=== PATIENT | female | born 1960 | race Caucasian/White ===

== ENCOUNTER 2020-04-26 23:10 | Emergency (ER) | payer OTHER, SELFPAY ==
[2020-04-26 23:15] VITALS: BP 189/98; PULSE 124; RESP 16; TEMP 37.3; O2SAT 98; BMI 37.8
[2020-04-26 23:30] VITALS: BP 151/78; PULSE 116; RESP 19; O2SAT 96
--- NOTE | 2020-04-26 23:42 | ED_ITS ---
HPI - Abdominal Pain General Chief Complaint: Abdominal Pain Stated Complaint: twisted bowel Time Seen by Provider: 04/26/20 23:12 Source: patient Mode of arrival: Ambulatory Limitations: no limitations History of Present Illness HPI narrative: 59-year-old female former smoker without significant medical history presents with a chief complaint of episodes of right upper quadrant pain with radiation to her back that lasts seconds to minutes and have no apparent provocation or palliation. Her symptoms started about 2 weeks ago and have been increasing in frequency and severity since. Today she started having some numbness on the surface of her skin overlying her right upper quadrant. She denies any change with position, eating. She has been having normal bowel movements and denies any nausea or vomiting. She denies any history of the same. She is concerned she may have a bowel obstruction because her mother had 1 and she remembers it acting somewhat like this. She states at its most intense her pain was 7/10 but is currently not present at all. She states she is always tachycardic with resting heart rates in the 110s to 120s. 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 MD complaint: abdominal pain Onset (ago): week(s) Pain Consistency: intermittent Location: RUQ Severity: severe Quality: cramping and stabbing Radiation: R flank and back Migration to: no migration Relieving factors: nothing Exacerbating factors: nothing Associated symptoms: denies other symptoms Related Data Previous Rx's Medication Instructions Recorded hydrocodone-acetaminophen 1 tab PO Q4-6H PRN #10 tab 04/27/20 ondansetron 4 mg PO TID-QID PRN #10 tab 04/27/20 Allergies Allergy/AdvReac Type Severity Reaction Status Date / Time ibuprofen [IBUPROFEN] Allergy Unknown Verified 04/27/20 00:27 iodine [IODINE] Allergy Unknown Verified 04/27/20 00:27 penicillin G [PENICILLIN G] Allergy Unknown Verified 04/27/20 00:27 Review of Systems Constitutional Constitutional: Denies chills, Denies fatigue, Denies fever(s), Denies frequent falls, Denies lethargy and Denies weakness Eyes Eyes: Denies change in vision, Denies eye discharge, Denies irritation and Denies loss of vision ENT Ears, Nose, Mouth, and Throat: Denies change in voice, Denies dizziness, Denies neck pain, Denies sore throat and Denies throat swelling Cardiovascular Cardiovascular: Denies chest pain, Denies irregular heart rhythm, Denies lightheadedness, Denies palpitations, Denies dyspnea, Denies dyspnea on exertion and Denies orthopnea Respiratory Respiratory: Denies cough, Denies dyspnea, Denies dyspnea on exertion and Denies wheezing Gastrointestinal Gastrointestinal: Reports abdominal pain, Denies change in bowel habits, Denies diarrhea, Denies nausea and Denies vomiting Musculoskeletal Musculoskeletal: Denies neck pain and Denies numbness Integumentary/Breasts Skin/Breast: Denies pruritus, Denies erythema, Denies rash and Denies wounds Neurologic Neurologic: Denies behavioral changes, Denies confusion, Denies dizziness, Denies frequent falls, Denies loss of vision, Denies numbness and Denies weakness Psychiatric Psychiatric: Denies anxiety, Denies behavioral changes, Denies confusion, Denies depression, Denies homicidal ideation and Denies suicidal ideation Endocrine Endocrine: Denies fatigue, Denies flushing and Denies palpitations Hematologic/Lymphatic Hematologic/Lymphatic: Denies easy bruising Allergic/Immunologic Allergic/Immunologic: Denies urticaria, Denies throat swelling and Denies wheez ing Patient History Social History Smoking Status: Never smoker Smoking Status: Never smoker Substance Use Type: does not use Exam Narrative Exam Narrative: GENERAL: [59] year old patient appears stated age. Well-no urished, well-developed patient, in mild distress. HEAD: Atraumatic. Normocephalic. EYES: Pupils equal round and reactive. Extraocular motions intact. No scleral icterus. No injection or drainage. ENT: Nose without bleeding, purulent drainage. Throat without erythema, tonsillar hypertrophy or exudate. Airway patent. NECK: Trachea midline. Non tender CARDIOVASCULAR: Tachycardic regular rhythm without murmurs, gallops, or rubs. RESPIRATORY: Clear to auscultation. Breath sounds equal bilaterally. No wheezes, rales, or rhonchi. GASTROINTESTINAL: Abdomen soft, non-tender, nondistended. EXTREMITIES: No edema or joint tenderness. BACK: Nontender without deformity or crepitance. No flank tenderness. NEURO: AOx3. SKIN: No rash or erythema of visible areas Initial Vital Signs Initial Vital Signs: Vital Signs Temperature 99.1 F 04/26/20 23:15 Pulse Rate 124 H 04/26/20 23:15 Respiratory Rate 16 04/26/20 23:15 Blood Pressure 189/98 H 04/26/20 23:15 Pulse Oximetry 98 04/26/20 23:15 Course Orders Ordered: ED Orders 04/26/20 23:43 Complete Blood Count AUTO DIFF Stat Comprehensive Metabolic Panel Stat D Dimer Stat Lipase Stat 04/27/20 00:09 CT abdomen pelvis w con Stat Discontinued Medications Hydrocodone Bitart/Acetaminophen (Hydrocodone/Acet 5/325 Prepack) 1 bottle MISC SEEINSTR ONE Stop: 04/27/20 02:11 Last Admin: 04/27/20 02:15 Dose: 1 bottle Documented by: LUIS ENRIQUE Diphenhydramine HCl (Diphenhydramine 50 Mg/Ml Vial) 25 mg IV NOW ONE Stop: 04/26/20 23:26 Last Admin: 04/27/20 00:02 Dose: 25 mg Documented by: MARIANELA Sodium Chloride (Normal Saline 0.9%) 1,000 mls @ 1,000 mls/hr IV BOLUS ONE Stop: 04/27/20 00:24 Last Infusion: 04/27/20 02:21 Dose: 0 mls/hr Documented by: LUIS ENRIQUE Admin: 04/27/20 00:03 Dose: 1,000 mls/hr Documented by: MARIANELA Famotidine (Pepcid) 20 mg in 50 mls @ 200 mls/hr IV NOW ONE Stop: 04/26/20 23:40 Last Infusion: 04/27/20 00:26 Dose: 0 mls/hr Documented by: Admin: 04/27/20 00:03 Dose: 200 mls/hr Documented by: MARIANELA Methylprednisolone (Methylprednisolone 125 Mg/2 Ml Vial) 125 mg IV NOW ONE Stop: 04/26/20 23:26 Last Admin: 04/27/20 00:02 Dose: 125 mg Documented by: MARIANELA Ondansetron HCl (Ondansetron 4 Mg Odt Prepack) 1 bottle MISC SEEINSTR ONE Stop: 04/27/20 02:11 Last Admin: 04/27/20 02:15 Dose: 1 bottle Documented by: LUIS ENRIQUE Reevaluation(s) Reevaluation #1: Patient feels significant, if not complete resolution of symptoms with above-stated therapies. Vital Signs Vital signs: Vital Signs - 8 hr 04/26/20 23:15 04/26/20 23:30 04/27/20 00:00 Temperature 99.1 F Pulse Rate 124 H 116 H 103 H Respiratory Rate 16 19 15 Blood Pressure 189/98 H 151/78 H 150/69 H Pulse Oximetry 98 96 94 04/27/20 01:34 04/27/20 02:00 Temperature Pulse Rate 101 H 97 H Respiratory Rate 18 14 Blood Pressure 136/96 H 146/75 H Pulse Oximetry 95 94 MDM - Abdominal Pain Lab Data Result diagrams: 04/26/20 23:43 04/26/20 23:43 Labs: Lab Results 04/26/20 04/26/20 04/26/20 Range/Units 23:43 23:43 23:43 WBC 7.7 (4.5-11.0) X10^3/uL RBC 4.60 (4.0-5.2) X10^6/uL Hgb 10.5 L (12.0-16.0) g/dL Hct 32.7 L (36-46) % MCV 71.1 L (80-100) fL MCH 22.9 L (26-34) PG MCHC 32.2 (30-36) % RDW 18.7 H (11.6-14.8) % Plt Count 325 (150-400) X10^3/uL Neut % (Auto) 64.9 (50-75) % Lymph % (Auto) 26.5 (25-40) % [place] % (Auto) 6.1 (3-14) % Eos % (Auto) 1.5 L (2-4) % Baso % (Auto) 1.0 (0-2) % Neut # (Auto) 5000 (8781-5615) /uL Lymph # (Auto) 2000 (3448-2400) /uL [place] # (Auto) 500 (0-900) /uL Eos # (Auto) 100 (0-450) /uL Baso # (Auto) 100 (0-100) /uL D-Dimer < 200 (<230) ng/mL Sodium 136 L (137-145) mmol/L Potassium 4.2 (3.4-5.1) mmol/L Chloride 103 (98-107) mmol/L Carbon Dioxide 26 (22-32) mmol/L BUN 18 H (7-17) mg/dL Creatinine 0.87 (0.52-1.04) mg/dL Estimated GFR > 60.0 (>60) mL/min BUN/Creatinine Ratio 20.7 (6-22) Glucose 205 H (80-110) mg/dL Calcium 9.8 (8.4-10.2) mg/dL Total Bilirubin 0.1 L (0.2-1.3) mg/dL AST 25 (14-36) IU/L ALT 24 (<35) IU/L Alkaline Phosphatase 117 (38-126) U/L Total Protein 7.9 (6.3-8.2) g/dL Albumin 4.5 (3.5-5.0) g/dL Globulin 3.4 (1.7-4.1) g/dL Albumin/Globulin Ratio 1.3 (1.0-2.8) Lipase 161 (23-300) U/L Imaging Data CT scan - abdomen/pelvis: Radiologist's Impression: Cholelithiasis without other abnormality MDM Narrative Medical decision making narrative: Multiple etiologies for patient's symptoms considered including: [Gallbladder disease versus pancreatitis versus bowel obstruction versus complication of gastric surgery versus cardiac disease versus pulmonary embolism versus muscle strain versus other] Patient's symptoms improved over duration of stay with above-stated therapies. Findings and discharge diagnosis discussed with patient/family followed by verbalization of understanding Return precautions discussed with patient/family whom verbalize understanding. Discharge Plan Departure Patient Disposition: Home Clinical Impression: Gallbladder pain Instructions: DI for General Gallbladder Conditions Activity Restrictions/Additional Instructions: *You have been diagnosed with [right upper quadrant pain, due to gallbladder disease] *What to do: *Take medications as directed. [facility] [place]. Any time patient's take pain medications they should consider taking stool softeners as they are likely to become constipated without them *Follow up with your primary care provider in 2-3 days, call for an appointment. Let them know you were seen in the Emergency Department and that we ask that you be seen in follow up. I provided contact information for Dr. Thompson with [facility] for follow-up *Return to ER if you should have any new, worsening or concerning symptoms, such as [increasing pain, fever greater than 101 F, persistent vomiting, yellowing of the skin or other bothersome symptoms] Prescriptions: New hydrocodone-acetaminophen 5-325 mg tablet 1 tab PO Q4-6H PRN (Reason: pain) Qty: 10 RF: 0 ondansetron 4 mg tablet,disintegrating 4 mg PO TID-QID PRN (Reason: nausea and vomiting) Qty: 10 RF: 0 Referrals: Jewels Coughlin ARNP [Primary Care Provider] - Yohana Thompson MD [Physician] -
[2020-04-26 23:53] LABS: Add Manual Diff / Slide Review NO; Basophils Absolute Auto 100 /uL (0-100); Eosinophils Absolute Auto 100 /uL (0-450); Eosinophils Percent Auto 1.5 % (2-4); Hematocrit 32.7 % (36-46); Hemoglobin 10.5 g/dL (12.0-16.0); Lymphocytes Absolute Auto 2000 /uL (1100-4500); Lymphocytes Percent Auto 26.5 % (25-40); Mean Corpuscular HGB Conc 32.2 % (30-36); Mean Corpuscular Hemoglobin 22.9 PG (26-34); Mean Corpuscular Volume 71.1 fL (80-100); Monocytes Absolute Auto 500 /uL (0-900); Monocytes Percent Auto 6.1 % (3-14); Neutrophils Absolute Auto 5000 /uL (1500-7000); Neutrophils Percent Auto 64.9 % (50-75); Platelet Count 325 X10^3/uL (150-400); Red Cell Distribution Width 18.7 % (11.6-14.8); White Blood Cell Count 7.7 X10^3/uL (4.5-11.0)
[2020-04-26 23:58] LABS: Alanine Aminotransferase 24 IU/L (<35); Albumin 4.5 g/dL (3.5-5.0); Albumin Globulin Ratio 1.3 (1.0-2.8); Alkaline Phosphatase 117 U/L (38-126); Aspartate Aminotransferase 25 IU/L (14-36); BUN Creatinine Ratio 20.7 (6-22); Bilirubin Total 0.1 mg/dL (0.2-1.3); Blood Urea Nitrogen 18 mg/dL (7-17); Calcium 9.8 mg/dL (8.4-10.2); Carbon Dioxide 26 mmol/L (22-32); Chloride 103 mmol/L (98-107); Estimated Glomerular Filt Rate > 60.0 mL/min (>60); Globulin 3.4 g/dL (1.7-4.1); Glucose 205 mg/dL (80-110); HEMOLYSIS < 15 (0-50); Lipase 161 U/L (23-300); Potassium 4.2 mmol/L (3.4-5.1); Sodium 136 mmol/L (137-145); Total Protein 7.9 g/dL (6.3-8.2)
[2020-04-27] VITALS: BP 150/69; PULSE 103; RESP 15; O2SAT 94
[2020-04-27] LABS: D Dimer < 200 ng/mL (<230)
[2020-04-27] MEDS: methylPREDNISolone 125 MG/2 ML VIAL IV (00:02)
[2020-04-27] MEDS: diphenhydrAMINE 50 MG/ML VIAL 25 MG IV (00:02)
[2020-04-27] MEDS: FAMOTIDINE 20 MG/50 ML PIGGYBACK 200 MG IV (00:03)
[2020-04-27] MEDS: SODIUM CHLORIDE 0.9% 1,000 ML 1000 ML IV (00:03)
--- NOTE | 2020-04-27 00:09 | DI.CT.S_ITS ---
PROCEDURE: CT ABDOMEN PELVIS W CON INDICATIONS: severe right upper quad pain, history of bypass TECHNIQUE: After the administration of intravenous contrast, 5 mm thick sections acquired from the diaphragm to the symphysis. 5 mm coronal and sagittal reformats were acquired. For radiation dose reduction, the following was used: automated exposure control, adjustment of mA and/or kV according to patient size. COMPARISON: None. FINDINGS: Image quality: Excellent. ABDOMEN: Lung bases: Lung bases are clear. Heart size is normal. Solid organs: Liver is normal in size. Hepatic steatosis. Gallbladder is not distended. Layering gallstones. Biliary system is non dilated. Pancreas enhances normally. Spleen is normal in size and enhancement. No adrenal nodules. Kidneys demonstrate normal size and enhancement, without hydronephrosis. Peritoneum and bowel: Post Olaf-en-Y gastric bypass. The gastric pouch is not distended. The excluded stomach demonstrates a small amount of fluid within its lumen. No free fluid in the upper abdomen. No small bowel obstruction. Colonic diverticulosis without diverticulitis. X is mildly prominent in caliber measuring up to 9 mm. However, the lumen is gas filled and there is no periappendiceal inflammatory change appreciated. No free fluid or air. Nodes and vessels: No retroperitoneal or mesenteric adenopathy by size criteria. Aorta and inferior vena cava are normal in size. Miscellaneous: No significant ventral hernias. PELVIS: Genitourinary: Bladder wall thickness is normal. Miscellaneous: No inguinal hernias or adenopathy. Bones: No suspicious bony lesions. Minimal retrolisthesis of L5 on S1. Moderate DDD at L4-L5 and L5-S1. No vertebral body compression fractures. IMPRESSION: 1. No abnormality identified to explain the patient's right upper quadrant abdominal pain. No free fluid. 2. Gallbladder is not distended. Layering gallstones. 3. Hepatic steatosis. 4. Post Olaf-en-Y gastric bypass. No SBO. Small amount of fluid within the lumen of the excluded stomach. 5. Mildly dilated air-filled appendix. No periappendiceal inflammatory change. This report is concordant with the overnight preliminary interpretation. Dictated by: Shant Coker M.D. on 04/27/2020 at 9:18 Approved by: Shant Coker M.D. on 04/27/2020 at 9:25
[2020-04-27 01:34] VITALS: BP 136/96; PULSE 101; RESP 18; O2SAT 95
[2020-04-27 02:00] VITALS: BP 146/75; PULSE 97; RESP 14; O2SAT 94
[2020-04-27] MEDS: ONDANSETRON 4 MG ODT PREPACK 1 BOTTLE MISC (02:15)
[2020-04-27] MEDS: HYDROCODONE/ACET 5/325 PREPACK 1 BOTTLE MISC (02:15)
== END 2020-04-27 02:21 | disposition home or self-care (01) ==
PROVIDERS: Emergency Provider Emergency Medicine; Family Provider Nurse Practitioner Acute Care; PCP Nurse Practitioner Acute Care
DX: K82.9 Disease of gallbladder, unspecified (principal)
CPT/HCPCS: 36415; 74177; 80053; 83690; 85025; 85379; 96361; 96365; 96375; 99281; 99284; J1200; J2930; Q9967

== ENCOUNTER 2021-06-22 14:26 | Emergency (ER) | payer OTHER, SELFPAY ==
[2021-06-22 14:46] VITALS: BP 144/71; PULSE 110; RESP 16; TEMP 36.3; O2SAT 96; BMI 36.8
--- NOTE | 2021-06-22 14:49 | DI.RAD.S_ITS ---
PROCEDURE: XR ANKLE RT MIN 3V INDICATIONS: fall TECHNIQUE: Three views of the ankle were acquired. COMPARISON: None. FINDINGS: Bones: No fractures or dislocations. Ankle mortise is normally aligned. No suspicious bony lesions. Soft tissues: No tibiotalar joint effusion. Achilles tendon appears normal. IMPRESSION: Intact right ankle. Dictated by: Shelia Dove M.D. on 06/22/2021 at 16:41 Approved by: Shelia Dove M.D. on 06/22/2021 at 16:41
--- NOTE | 2021-06-22 14:49 | DI.RAD.S_ITS ---
PROCEDURE: XR FOOT RT MIN 3V INDICATIONS: fall TECHNIQUE: Three views of the foot were acquired. COMPARISON: None. FINDINGS: Bones: Spiral nondisplaced fracture of the 5th metatarsal diaphysis. Mildly decreased mineralization. No dislocation. There is probably degenerative subluxation at the 5th interphalangeal joint. Mild hallux valgus at the 1st MTP joint. Soft tissues: No tibiotalar joint effusion. Achilles tendon appears normal. IMPRESSION: 1. Nondisplaced spiral 5th metatarsal diaphyseal fracture. Dictated by: Shelia Dove M.D. on 06/22/2021 at 16:38 Approved by: Shelia Dove M.D. on 06/22/2021 at 16:41
--- NOTE | 2021-06-22 16:44 | ED_ITS ---
HPI - Extremity Injury (Lower) <Zaria West PA-C - Last Filed: 06/22/21 17:45> General Chief Complaint: Extremity Injury, Lower Stated Complaint: Tripped and fell, thinks broken rt foot Time Seen by Provider: 06/22/21 16:32 History of Present Illness HPI Narrative: 60-year-old female presents to the ED status post a trip and fall. Patient endorses pain in the lateral aspect of the right foot. Patient denies numbness, tingling, weakness. Patient describes it as a mechanical fall. Patient denies any lightheadedness, dizziness prior to the fall. Patient was unable to fully bear weight after the injury. Related Data Previous Rx's Medication Instructions Recorded hydrocodone 5 mg-acetaminophen 325 1 tab PO Q4-6H PRN #10 tab 04/27/20 mg tablet ondansetron 4 mg disintegrating 4 mg PO TID-QID PRN #10 tab 04/27/20 tablet Allergies Allergy/AdvReac Type Severity Reaction Status Date / Time ibuprofen [IBUPROFEN] Allergy Unknown Verified 04/27/20 00:27 iodine [IODINE] Allergy Unknown Verified 04/27/20 00:27 penicillin G [PENICILLIN G] Allergy Unknown Verified 04/27/20 00:27 Review of Systems <Zaria West PA-C - Last Filed: 06/22/21 17:45> Review of Systems ROS Unobtainable: All systems reviewed & are unremarkable except as noted in HPI and below Constitutional Constitutional: Denies chills, Denies fatigue, Denies fever(s), Denies frequent falls, Denies lethargy and Denies weakness Eyes Eyes: Denies change in vision, Denies eye discharge, Denies irritation and Denies loss of vision ENT Ears, Nose, Mouth, and Throat: Denies change in voice, Denies dizziness, Denies neck pain, Denies sore throat and Denies throat swelling Cardiovascular Cardiovascular: Denies chest pain, Denies irregular heart rhythm, Denies lightheadedness, Denies palpitations, Denies dyspnea, Denies dyspnea on exertion and Denies orthopnea Respiratory Respiratory: Denies cough, Denies dyspnea, Denies dyspnea on exertion and Denies wheezing Gastrointestinal Gastrointestinal: Denies abdominal pain, Denies change in bowel habits, Denies diarrhea, Denies nausea and Denies vomiting Genitourinary Genitourinary: Denies hematuria, Denies flank pain, Denies urinary incontinence and Denies urinary urgency Musculoskeletal Musculoskeletal: Denies back pain, Denies muscle weakness, Denies neck pain, Denies numbness and Denies tingling Comments: Right lateral foot pain Integumentary/Breasts Skin/Breast: Denies pruritus, Denies erythema, Denies rash and Denies wounds Neurologic Neurologic: Denies behavioral changes, Denies confusion, Denies dizziness, Denies frequent falls, Denies loss of vision, Denies numbness, Denies tingling and Denies weakness Psychiatric Psychiatric: Denies anxiety, Denies behavioral changes, Denies confusion, Denies depression, Denies homicidal ideation and Denies suicidal ideation Endocrine Endocrine: Denies fatigue, Denies flushing and Denies palpitations Hematologic/Lymphatic Hematologic/Lymphatic: Denies easy bruising Allergic/Immunologic Allergic/Immunologic: Denies urticaria, Denies throat swelling and Denies wheezing Patient History <Zaria West PA-C - Last Filed: 06/22/21 17:45> Social History Smoking Status: Never smoker Smoking Status: Never smoker Substance Use Type: does not use Exam <Zaria West PA-C - Last Filed: 06/22/21 17:45> Initial Vital Signs Initial Vital Signs: Vital Signs Temperature 97.4 F L 06/22/21 14:46 Pulse Rate 110 H 06/22/21 14:46 Respiratory Rate 16 06/22/21 14:46 Blood Pressure 144/71 H 06/22/21 14:46 Pulse Oximetry 96 06/22/21 14:46 Const General: cooperative, healthy appearing and comfortable [facility] Head: normal to inspection Eyes General: appearance normal, both eyes and all related structures Neck Neck: normal visual inspection Resp Effort & Inspection: normal respiratory effort Cardio Rate: regular rate Skin General: no rashes or lesions noted Neuro General: patient alert, patient awake and patient oriented x3 Extrem Other: Right distal 5th metatarsal tender to palpation. Mild swelling. No bruising. Skin intact. Strength and sensation intact. Full range of motion. Neurovascularly intact. Psych Appearance: grossly normal Mental Status: mental status grossly normal Course <Zaria West PA-C - Last Filed: 06/22/21 17:45> Orders Ordered: ED Orders 06/22/21 14:49 XR ankle RT min 3V Stat XR foot RT min 3V Stat Vital Signs Vital signs: Vital Signs - 8 hr 06/22/21 14:46 06/22/21 17:50 Temperature 97.4 F L Pulse Rate 110 H 105 H Respiratory Rate 16 18 Blood Pressure 144/71 H 136/88 Pulse Oximetry 96 99 MDM - Extremity Injury (Lower) <Zaria West PA-C - Last Filed: 06/22/21 17:45> Imaging Data Extremity x-ray #1: Radiologist's Impression: PROCEDURE:? XR FOOT RT MIN 3V ? INDICATIONS:? fall ? TECHNIQUE:? Three views of the foot were acquired.? ? COMPARISON:? None. ? FINDINGS:? ? Bones:? Spiral nondisplaced fracture of the 5th metatarsal diaphysis.? Mildly decreased mineralization.? No dislocation.? There is probably degenerative subluxation at the 5th interphalangeal joint.? Mild hallux valgus at the 1st MTP joint. ? Soft tissues:? No tibiotalar joint effusion.? Achilles tendon appears normal.? ? ? IMPRESSION:? ? 1. Nondisplaced spiral 5th metatarsal diaphyseal fracture.? ? ? Dictated by: Shelia Dove M.D. on 06/22/2021 at 16:38 ? ? Approved by: Shelia Dove M.D. on 06/22/2021 at 16:41 ? Extremity x-ray #2: Radiologist's Impression: PROCEDURE:? XR ANKLE RT MIN 3V ? INDICATIONS:? fall ? TECHNIQUE:? Three views of the ankle were acquired.? ? COMPARISON:? None. ? FINDINGS:? ? Bones:? No fractures or dislocations.? Ankle mortise is normally aligned.? No suspicious bony lesions.? ? Soft tissues:? No tibiotalar joint effusion.? Achilles tendon appears normal.? ? ? IMPRESSION:? Intact right ankle. ? Dictated by: Shelia Dove M.D. on 06/22/2021 at 16:41 ? ? Approved by: Shelia Dove M.D. on 06/22/2021 at 16:41 ? MDM Narrative Medical decision making narrative: 60-year-old female presents to the ED status post a trip and fall. Concern for fracture/dislocation versus sprain/strain. Ankle x-rays negative. Foot x-ray positive for a nondisplaced spiral 5th metatarsal diaphyseal fracture. Will fit patient in a boot, walker. Patient to follow-up with [facility] at [phone]. ED return precautions discussed. Patient v erbalized understanding. Patient discharged. Discharge Plan Departure Patient Disposition: Home Clinical Impression: Foot fracture, right Instructions: DI for Fracture Activity Restrictions/Additional Instructions: You were evaluated in the ED today for a foot injury. Your x-ray shows a fractu re of the 5th right metatarsal. You have been fitted with a boot and crutches. You may progressively increase weight-bearing as tolerable. Please follow-up with [facility] at [phone]. Return to the ED if you notice worsening symptoms, numbness, tingling, weakness. Prescriptions: No Action hydrocodone-acetaminophen 5-325 mg tablet 1 tab PO Q4-6H PRN (Reason: pain) Qty: 10 0RF ondansetron 4 mg tablet,disintegrating 4 mg PO TID-QID PRN (Reason: nausea and vomiting) Qty: 10 0RF Referrals: Jewels Coughlin ARNP [Primary Care Provider] -
[2021-06-22 17:50] VITALS: BP 136/88; PULSE 105; RESP 18; O2SAT 99
== END 2021-06-22 18:05 | disposition home or self-care (01) ==
PROVIDERS: Emergency Provider Student in an Organized Health Care Education/Training Program; Family Provider Nurse Practitioner Acute Care; PCP Nurse Practitioner Acute Care
DX: S92.354A Nondisplaced fracture of fifth metatarsal bone, right foot, initial encounter for closed fracture (principal); W01.0XXA Fall on same level from slipping, tripping and stumbling without subsequent striking against object, initial encounter
CPT/HCPCS: 73610; 73630; 99283

== ENCOUNTER → 2022-02-22 13:38 | Outpatient (CLI) | payer OTHER, SELFPAY ==
[2022-02-22 14:51] LABS: COVID19 -Nasal RAPID Negative (Negative)
== END ==
PROVIDERS: Family Provider Nurse Practitioner Acute Care; PCP Family Medicine; Visit Provider Surgery
DX: Z01.812 Encounter for preprocedural laboratory examination (principal); Z20.822 Contact with and (suspected) exposure to COVID-19; K80.20 Calculus of gallbladder without cholecystitis without obstruction; R19.5 Other fecal abnormalities
CPT/HCPCS: 87635; 99213

== ENCOUNTER 2022-02-25 12:59 | Day surgery (SDC) | payer OTHER, SELFPAY ==
--- NOTE | 2022-02-25 | PATH_ITS ---
[facility] Accession Number: [id number] . 01 Material submitted: . colon - TRANSVERSE COLON POLYP . 01 Diagnosis: Transverse Colon Polyp, Biopsy: Colonic mucosa with prominent benign lymphoid aggregate. Negative for serrated lesion, dysplasia or malignancy. Additional step sections examined. MRV 03/02/2022 1438 Local . 01 Electronically signed: . Chandra Castro MD, PhD, Pathologist NPI- [id number] . 01 Gross description: . TRANSVERSE COLON POLYP: Received in formalin are 3 fragment(s) of schmidt, soft tissue measuring 1.0 x 0.3 x 0.1 cm to 0.1 x 0.1 x 0.1 cm submitted entirely in 1 cassette(s) /CPE 02/27/2022 1033 Local . 01 Pathologist provided ICD-10: K63.5 . 01 CPT . 544604 Specimen Comment: A courtesy copy of this report has been sent to [phone] Performed at: 01 [facility] [address] [place] [address], [place], [place] [id number] MD Amos Simms MD Phone: [phone]
[2022-02-25 14:00] VITALS: BP 134/81; PULSE 101; RESP 15; TEMP 36.5; O2SAT 97; BMI 36.0
[2022-02-25] MEDS: LACTATED RINGERS 1,000 ML 84 ML IV (14:18)
--- NOTE | 2022-02-25 14:35 | PM.PREOP ---
Pre-operative Note COVID-19 COVID-19 status: Negative Result date/Date tested (Pos, Neg/Pending): 02/24/22 Interval Note History & Physical reviewed/Exam performed by Physician: Yes Changes to H&P: No ASA Class (for procedural sedation): II
[2022-02-25 15:11] VITALS: BP 108/67; PULSE 95; RESP 9; TEMP 36.8; O2SAT 92
--- NOTE | 2022-02-25 15:12 | PM.OP.COLON ---
Operative Date/Time/Diagnoses Date of procedure: 02/25/22 Time of procedure: 15:12 Pre-op diagnosis: Positive fit test Post-op diagnosis: same Procedure & Clinicians Study performed: Colonoscopy Same procedure as scheduled: Yes Surgeon: Caleb Hutchins Procedure Notes Procedure in detail: Surgeon: Caleb Hutchins MD Anesthesia: Dr. Betancourt Procedure: The patient was brought to the endoscopy suite, placed in left lateral decubitus position. The patient was connected to monitoring devices. A time-out was performed. Sedation was administered. Once the patient was adequately sedated, a digital rectal exam was performed and was normal. The scope was then inserted and advanced to the cecum where the appendiceal orifice was identified and photographed. The scope was then slowly withdrawn over greater than 6 minutes. The mucosa was thoroughly inspected. There was a small 3 mm polyp in the transverse colon removed with a cold snare. The scope was retroflexed in the rectum. No abnormalities were noted. The scope was straightened and removed. The patient was awakened and brought to recovery. Scope withdrawal time: 8 Sedation time: 20 minutes EBL: 5 mL Findings: 3 mm transverse polyp Post-procedure Recommendations: Will call with biopsy results Follow up: weeks Disposition: PACU
[2022-02-25 15:16] VITALS: BP 117/76; PULSE 99; RESP 12; TEMP 36.6; O2SAT 93
[2022-02-25 15:21] VITALS: BP 133/80; PULSE 93; RESP 16; TEMP 36.7; O2SAT 98
[2022-02-25 15:28] VITALS: BP 136/76; PULSE 97; RESP 16; TEMP 36.6; O2SAT 96
== END 2022-02-25 15:38 | disposition home or self-care (01) ==
PROVIDERS: Family Provider Nurse Practitioner Acute Care; PCP Family Medicine; Referring Provider Surgery; Visit Provider Surgery
PROC: 0DJD8ZZ Inspection of Lower Intestinal Tract, Via Natural or Artificial Opening Endoscopic (ICD-10-PCS; CPT 45378; principal; 2022-02-25 14:15)
DX: R19.5 Other fecal abnormalities (principal); K63.5 Polyp of colon
CPT/HCPCS: 45385; J2704; J3010